=== PATIENT | female | born 1970 | race Caucasian/White ===

== ENCOUNTER 2016-06-13 15:44 | Emergency (ER) | payer MEDICAID ==
[~2016-06-13 15:44] MED LIST: CEPH250 PO; CIPR500T4 PO; LORTA5 PO; ONDA1TAB16 PO; OXYB5TAB33 PO; PERC5TAB12 PO; TAMS0.4C67 PO; TIZA4 PO; TYLE3 PO; ZOFR4TAB3 PO
[2016-06-13 15:47] VITALS: BP 179/91; PULSE 108; RESP 16; TEMP 98.2; O2SAT 98
[2016-06-13] MEDS ORDERED: SODIUM CHLOR 0.9% 1000 ML INJ 1,000 ML IV ONE (16:04)
[2016-06-13] MEDS ORDERED: MORPHINE SULFATE 4 MG/ML INJ IV ONE (16:15)
[2016-06-13] MEDS ORDERED: ONDANSETRON HCL 4 MG/2 ML VIAL IVP ONE (16:15)
--- NOTE | 2016-06-13 16:31 | PD ---
HPI Chief Complaint: Flank/Kidney Pain Time Seen by Provider: 16:28 Travel History International Travel<30 days: No Contact w/Intl Traveler<30days: No History of Present Illness HPI 45-year-old female that presents to the ED for evaluation of left abdominal and flank pain. Patient has a chronic history of kidney stones in the past and has had same pain in the past. Patient states that she's had this for a week and initially she didn't think much of it as she will just finished her periods that she was thinking that maybe is related to that. She also has been moving to any location and she was doing heavy lifting and could be the cause of it. She really more worried when she started noticing that she had more urgency and polyuria. She also got worried when the pain did not go away and seems to becoming ongoing and progressively not improving. Per patient she's had had to have stents in the past and she is concerned that she might need a new one. She denies any fevers chills or sweats. Per patient she does feel somewhat nauseous but not vomiting. No bowel movement issues. No vaginal discharge. Per patient she has no vaginal bleeding any more. She denies . Per patient her pain is 7 out of 10 minutes and the left side. Does not radiate. PFSH Past Medical History Cancer: No Cardiovascular Problems: No Diabetes: No Diminished Hearing: No Endocrine: No Genitourinary: Yes (HX KIDNEY STONES, CALCIFIED KIDNEY, AND UTI) Headaches: Yes Hepatitis: No Hiatal Hernia: No Immune Disorder: No Kidney Stones: Yes Musculoskeletal: Yes (SCOLIOSIS, chronic back pain) Neurologic: Yes Reproductive: No Respiratory: No Seizures: Yes Thyroid Disease: No ?: Not : 8 Para: 5 Miscarriage: 3 Ovarian Cysts: Yes Tubal Ligation: Yes Past Surgical History AICD: No Body Medical Devices: STENT IN L SIDE Ear Surgery: Yes (TUBES A CHILD) Genitourinary Surgery: Yes (LITHOTRIPSY, STENT IN PLACE FOR LEFT) Joint Replacement: No Pacemaker: No Tonsillectomy: Yes Other Surgery: Yes (URETER STENTS X3, LITHOTRIPSY ) Social History Alcohol Use: No Tobacco Use: No Substance Use: No Allergies-Medications (Allergen,Severity, Reaction): Coded Allergies: Seafood (Verified Allergy, Severe, SWELLING, 06/13/16) Reported Meds & Prescriptions Reported Meds & Active Scripts Active Diclofenac Sodium DR (Diclofenac Sodium) 75 Mg Tabdr 75 Mg PO BID PRN Lortab (Hydrocodone-Acetaminophen) 5-325 Mg Tab 1 Tab PO Q6H PRN Zofran (Ondansetron HCl) 4 Mg Tab 4 Mg PO Q6HR PRN Review of Systems Except as stated in HPI: all other systems reviewed are Neg Physical Exam Narrative GENERAL: SKIN: Warm and dry. HEAD: Atraumatic. Normocephalic. EYES: Pupils equal and round. No scleral icterus. No injection or drainage. ENT: No nasal bleeding or discharge. Mucous membranes pink and moist. Tongue is midline. No uvula deviation. NECK: Trachea midline. No JVD. CARDIOVASCULAR: Regular rate and rhythm. No murmurs, S3, S4. RESPIRATORY: No accessory muscle use. Clear to auscultation. Breath sounds equal bilaterally. GASTROINTESTINAL: Abdomen soft, patient has scars to palpation of the left lower quadrant, nondistended. Hepatic and splenic margins not palpable. MUSCULOSKELETAL: Extremities without clubbing, cyanosis, or edema. No obvious deformities. Full range of motion of the upper and lower extremities bilaterally. 2+ pulses bilaterally. Patient has no CVA tenderness. NEUROLOGICAL: Awake and alert. No obvious cranial nerve deficits. Motor grossly within normal limits. Five out of 5 muscle strength in the arms and legs. Normal speech. PSYCHIATRIC: Appropriate mood and affect; insight and judgment normal. Data Data Last Documented VS Vital Signs Date Time Temp Pulse Resp B/P Pulse Ox O2 Delivery O2 Flow Rate FiO2 06/13/16 15:47 98.2 108 16 179/91 98 Room Air Orders Complete Blood Count With Diff (06/13/16 16:00) Comprehensive Metabolic Panel (06/13/16 16:00) Lipase (06/13/16 16:00) Urinalysis - C+S If Indicated (06/13/16 16:00) Iv Access Insert/Monitor (06/13/16 16:00) Ed Urine Pregnancytest Poc (06/13/16 16:04) Morphine Inj (Morphine Inj) (06/13/16 16:15) Ondansetron Inj (Zofran Inj) (06/13/16 16:15) Sodium Chlor 0.9% 1000 Ml Inj (Ns 1000 M (06/13/16 16:04) Ct Abd/Pel W/O Iv Contrast (1/13/17 ) Labs Laboratory Tests Test 06/13/16 16:30 White Blood Count 10.5 TH/MM3 Red Blood Count 3.85 MIL/MM3 Hemoglobin 11.9 GM/DL Hematocrit 35.1 % Mean Corpuscular Volume 91.2 FL Mean Corpuscular Hemoglobin 30.9 PG Mean Corpuscular Hemoglobin 33.8 % Concent Red Cell Distribution Width 13.4 % Platelet Count 371 TH/MM3 Mean Platelet Volume 8.6 FL Neutrophils (%) (Auto) 71.6 % Lymphocytes (%) (Auto) 20.6 % Monocytes (%) (Auto) 5.8 % Eosinophils (%) (Auto) 1.2 % Basophils (%) (Auto) 0.8 % Neutrophils # (Auto) 7.5 TH/MM3 Lymphocytes # (Auto) 2.2 TH/MM3 Monocytes # (Auto) 0.6 TH/MM3 Eosinophils # (Auto) 0.1 TH/MM3 Basophils # (Auto) 0.1 TH/MM3 CBC Comment DIFF FINAL Differential Comment Urine Color YELLOW Urine Turbidity HAZY Urine pH 6.0 Urine Specific [place] 1.021 Urine Protein NEG mg/dL Urine Glucose (UA) NEG mg/dL Urine Ketones NEG mg/dL Urine Occult Blood NEG Urine Nitrite NEG Urine Bilirubin NEG Urine Urobilinogen LESS THAN 2.0 MG/DL Urine Leukocyte Esterase NEG Urine WBC 2 /hpf Urine Squamous Epithelial 8 /hpf Cells Urine Mucus FEW /lpf Microscopic Urinalysis Comment CULT NOT INDICATED Sodium Level 139 MEQ/L Potassium Level 4.0 MEQ/L Chloride Level 104 MEQ/L Carbon Dioxide Level 24.1 MEQ/L Anion Gap 11 MEQ/L Blood Urea Nitrogen 19 MG/DL Creatinine 0.72 MG/DL Estimat Glomerular Filtration 88 ML/MIN Rate Random Glucose 101 MG/DL Calcium Level 8.6 MG/DL Total Bilirubin 0.3 MG/DL Aspartate Amino Transf 9 U/L (AST/SGOT) Alanine Aminotransferase 19 U/L (ALT/SGPT) Alkaline Phosphatase 86 U/L Total Protein 6.9 GM/DL Albumin 3.7 GM/DL Lipase 122 U/L MDM Medical Decision Making Medical Screen Exam Complete: Yes Emergency Medical Condition: Yes Medical Record Reviewed: Yes Interpretation(s) Last Impressions Abdomen/Pelvis CT 06/13/16 0000 Signed Impressions: Service Date/Time: Monday, June 13, 2016 16:52 - CONCLUSION: 1. No acute intra-abdominal process. 2. Cholelithiasis. 3. Multiple tiny calcified nonobstructing left renal calculi. 4. Uncomplicated colonic diverticulosis. 5. Scoliosis and degenerative changes of the lumbar spine. 6. Slight prominence of the right ovary which is nonspecific. Rogre Espino MD CBC & BMP Diagram 06/13/16 16:30 LFTS and lipase WNL UA negative Differential Diagnosis Kidney stone versus pylonephritis versus cystitis versus urethritis versus pelvic pain Narrative Course 45-year-old female that presents to the ED for evaluation of left flank and abdominal pain. Patient was properly examined and was found to have signs and symptoms which appear to be consistent with likely kidney stone. Labs and imaging ordered. Patient was given IV pain medication as well as fluids. Labs and imaging showed multiple kidney stones on the left side but nothing causing obstruction. Stones are too small. No sign of infection. Patient was reassured. At this time I believe the patient may be passing some other smaller stones in causing the pain. I will treat patient for her pain with diclofenac sodium, Lortab and she was given Zofran for nausea to use as needed. She was instructed to drink plenty of fluids. Follow with her doctor. See ED worsening symptoms. Diagnosis Primary Impression: Flank pain Patient Instructions: General Instructions, Narcotic given in the ED Additional Instructions: Take medications as prescribed. Follow-up with PCP. See ED for any worsening symptoms. Do not drink or drive while taking pain medication. Apply ice or heat as needed for pain. Drink plenty of fluids. Med/Other Pt SpecificInfo: Prescription(s) given Scripts Diclofenac Sodium DR 75 Mg Tabdr75 Mg PO BID PRN (PAIN SCALE 1 TO 10) #20 TAB Prov:Vincent Cedeno MD 06/13/16 Hydrocodone-Acetaminophen (Lortab)5-325 Mg Tab1 Tab PO Q6H PRN (PAIN) #14 TAB Prov:Vincent Cedeno MD 06/13/16 Ondansetron (Zofran)4 Mg Tab4 Mg PO Q6HR PRN (NAUSEA OR VOMITING) #20 TAB Prov:Vincent Cedeno MD 06/13/16 Disposition: 01 DISCHARGE HOME Condition: Stable Алкесандр العراقي Jun 13, 2016 16:31
[2016-06-13 16:47] LABS: BLOOD, URINE NEG (NEG); COMMENT (UR) CULT NOT INDICATED; CULTURE IF INDICATED CULT NOT INDICATED; GLUCOSE,URINE NEG (NEG); KETONE, URINE NEG (NEG); MUCUS URINE FEW /lpf (OCC); NITRITE,URINE NEG (NEG); SQUAMOUS EPITHELIAL CELL URINE 8 /hpf (0-5); URINE COLOR YELLOW (YELLW/STRAW)
[2016-06-13 16:58] LABS: ALT (GPT) 19 U/L (10-53); ANION GAP 11 MEQ/L (5-15); AST (GOT) 9 U/L (15-37); BICARBONATE 24.1 MEQ/L (21.0-32.0); BLOOD UREA NITROGEN 19 MG/DL (7-18); CHLORIDE 104 MEQ/L (98-107); GLOMERULAR FILTRATION RATE 88 ML/MIN (>89); SODIUM (NA) 139 MEQ/L (136-145)
[2016-06-13 17:00] LABS: ALKALINE PHOSPHATASE 86 U/L (45-117); TOTAL BILIRUBIN ADULT 0.3 MG/DL (0.2-1.0)
--- NOTE | 2016-06-13 17:17 | RADRPT ---
EXAM DATE/TIME: 06/13/2016 16:52 [facility] COMPARISON: CT ABDOMEN & PELVIS W/O CONTRAST, September 10, 2015, 17:34. INDICATIONS : Left flank and groin pain. ORAL CONTRAST: No oral contrast ingested. RADIATION DOSE: 14.79 CTDIvol (mGy) MEDICAL HISTORY : Renal calculi. SURGICAL HISTORY : Tubal ligation. Ureteral stents. ENCOUNTER: Initial ACUITY: 1 day PAIN SCALE: 5/10 LOCATION: Left flank TECHNIQUE: Volumetric scanning of the abdomen and pelvis was performed. Using automated exposure control and adjustment of the mA and/or kV according to patient size, radiation dose was kept as low as reasonably achievable to obtain optimal diagnostic quality images. FINDINGS: LOWER LUNGS: The visualized lower lungs are clear. LIVER: Homogeneous density without lesion. There is no dilation of the biliary tree. The gallbla dder is filled with calcified gallstones. SPLEEN: Normal size without lesion. PANCREAS: Within normal limits. KIDNEYS: Normal in size and shape. Tiny calcified 2 mm nonobstructing left renal calculi are note d. There is no mass or hydronephrosis. ADRENAL GLANDS: Within normal limits. VASCULAR: There is no aortic aneurysm. BOWEL/MESENTERY: Uncomplicated colonic diverticulosis is noted. The appendix is normal. ABDOMINAL WALL: Within normal limits. RETROPERITONEUM: There is no lymphadenopathy. BLADDER: No wall thickening or mass. REPRODUCTIVE: The right ovary is more prominent than the left and measures 2.9 x 3.7 cm. INGUINAL: There is no lymphadenopathy or hernia. MUSCULOSKELETAL: Scoliosis and degenerative changes of the lumbar spine are noted. CONCLUSION: 1. No acute intra-abdominal process. 2. Cholelithiasis. 3. Multiple tiny calcified nonobstructing left renal calculi. 4. Uncomplicated colonic diverticulosis. 5. Scoliosis and degenerative changes of the lumbar spine. 6. Slight prominence of the right ovary which is nonspecific. Roger Espino MD on June 13, 2016 at 17:06 Board Certified Radiologist. This report was verified electronically.
[2016-06-13 17:18] LABS: AUTOMATED NEUTROPHIL # 7.5 TH/MM3 (1.8-7.7); BASOPHIL # 0.1 TH/MM3 (0-0.2); BASOPHIL % 0.8 % (0.0-2.0); EOSINOPHIL # 0.1 TH/MM3 (0-0.4); EOSINOPHIL % 1.2 % (0.0-4.0); HEMATOCRIT 35.1 % (35.0-46.0); HEMO FLAGS DIFF FINAL; LYMPH % 20.6 % (9.0-44.0); LYMPHOCYTE # 2.2 TH/MM3 (1.0-4.8); MEAN CELL VOLUME 91.2 FL (80.0-100.0); MEAN CORPUSCULAR HEMOGLOBIN 30.9 PG (27.0-34.0); MEAN CORPUSCULAR HGB CONC 33.8 % (32.0-36.0); MONO % 5.8 % (0.0-8.0); NEUT % 71.6 % (16.0-70.0); PLATELET COUNT 371 TH/MM3 (150-450); RED BLOOD COUNT 3.85 MIL/MM3 (4.00-5.30); RED CELL DISTRIBUTION WIDTH 13.4 % (11.6-17.2); WHITE BLOOD COUNT 10.5 TH/MM3 (4.0-11.0)
[2016-06-13] MEDS ORDERED: HYDR-3533 PO (17:26)
[2016-06-13] MEDS ORDERED: DICL75TA PO (17:26)
[2016-06-13] MEDS ORDERED: ZOFR4TAB PO (17:26)
== END 2016-06-13 18:30 | disposition home or self-care (01) ==
LOC: NEPC 15:44
DX: R10.9 Unspecified abdominal pain (principal)
CPT/HCPCS: 74176; 80053; 81001; 83690; 84703; 85025; 96361; 96374; 96375; 99284; J2270; J2405; J7030

== ENCOUNTER 2017-01-22 09:22 | Emergency (ER) | payer MEDICAID ==
[~2017-01-22] VITALS: Ht 160 cm; Wt 68.0 kg
[~2017-01-22 09:22] MED LIST changes: -CEPH250 PO; -CIPR500T4 PO; +DICL75TA PO; +HYDR-3533 PO; -LORTA5 PO; -ONDA1TAB16 PO; -OXYB5TAB33 PO; -PERC5TAB12 PO; -TAMS0.4C67 PO; -TIZA4 PO; -TYLE3 PO; +ZOFR4TAB PO; -ZOFR4TAB3 PO
[2017-01-22 09:24] VITALS: BP 167/98; PULSE 122; RESP 17; TEMP 98.2; O2SAT 98
[2017-01-22 09:41] VITALS: BP 135/90; PULSE 106; RESP 24; TEMP 98.3; O2SAT 99
[2017-01-22] MEDS ORDERED: KETOROLAC TROMETHAMINE 30 MG/ML (IVP) VIAL IVP ONE (10:00)
[2017-01-22] MEDS ORDERED: ONDANSETRON HCL 4 MG/2 ML VIAL IVP ONE (10:00)
[2017-01-22] MEDS ORDERED: SODIUM CHLORIDE 0.9% FLUSH 10 ML FLUSH IV FLUSH PRN (10:00)
[2017-01-22] MEDS ORDERED: SODIUM CHLOR 0.9% 1000 ML INJ 1,000 ML IV ONE (10:15)
[2017-01-22 10:16] VITALS: RESP 18; O2SAT 98
[2017-01-22 10:48] LABS: BACTERIA, URINE RARE /hpf; BLOOD, URINE MOD (NEG); GLUCOSE,URINE NEG (NEG); KETONE, URINE NEG (NEG); NITRITE,URINE NEG (NEG); SQUAMOUS EPITHELIAL CELL URINE 1 /hpf (0-5); URINE COLOR YELLOW (YELLW/STRAW)
[2017-01-22 10:51] LABS: AUTOMATED NEUTROPHIL # 6.8 TH/MM3 (1.8-7.7); BASOPHIL # 0.1 TH/MM3 (0-0.2); BASOPHIL % 0.7 % (0.0-2.0); EOSINOPHIL # 0.1 TH/MM3 (0-0.4); EOSINOPHIL % 1.2 % (0.0-4.0); HEMATOCRIT 36.7 % (35.0-46.0); HEMO FLAGS DIFF FINAL; LYMPH % 25.4 % (9.0-44.0); LYMPHOCYTE # 2.5 TH/MM3 (1.0-4.8); MEAN CELL VOLUME 93.5 FL (80.0-100.0); MEAN CORPUSCULAR HEMOGLOBIN 31.6 PG (27.0-34.0); MEAN CORPUSCULAR HGB CONC 33.8 % (32.0-36.0); MONO % 4.5 % (0.0-8.0); NEUT % 68.2 % (16.0-70.0); PLATELET COUNT 341 TH/MM3 (150-450); RED BLOOD COUNT 3.92 MIL/MM3 (4.00-5.30); RED CELL DISTRIBUTION WIDTH 13.9 % (11.6-17.2)
[2017-01-22 11:00] LABS: BICARBONATE 24.7 MEQ/L (21.0-32.0)
[2017-01-22] MEDS ORDERED: HYDROmorphone HCL PF 1 MG/ML VIAL IV PUSH ONE (11:00)
--- NOTE | 2017-01-22 11:00 | EKG ---
Date Performed: 01/22/2017 Time Performed: 09:59:14 PTAGE: 46 years EKG: Sinus rhythm POSSIBLE LEFT ATRIAL ENLARGEMENT LOW QRS VOLTAGE IN PRECORDIAL LEADS NONSPECIFIC T-WAVE ABNORMALITY BORDERLINE ECG PREVIOUS TRACING : 01/06/2013 14.55 No significant change from previous tracing noted. DOCTOR: Hai Leon Interpretating Date/Time 01/22/2017 10:59:48
[2017-01-22 11:06] LABS: COMMENT (UR) CULT NOT INDICATED; CULTURE IF INDICATED CULT NOT INDICATED
[2017-01-22] MEDS ORDERED: ZOFR4TAB PO (11:40)
[2017-01-22] MEDS ORDERED: TAMS5CAP PO (11:40)
[2017-01-22] MEDS ORDERED: HYDR-3533 PO (11:40)
--- NOTE | 2017-01-22 11:41 | PD ---
HPI Chief Complaint: Flank/Kidney Pain Time Seen by Provider: 09:58 Travel History International Travel<30 days: No Contact w/Intl Traveler<30days: No Traveled to known affect area: No History of Present Illness HPI Patient is 46 years old. She complains of pain in the left flank. She has had intermittent left flank pain for years. She has nephrocalcinosis and frequent stones. No fever. Pain radiates from the left lower quadrant to the flank of the left side and back. Severity moderate. it can be severe at times. Over- the-counter analgesia at home have been marginally helpful PFSH Past Medical History Cancer: No Cardiovascular Problems: No Diabetes: No Diminished Hearing: No Endocrine: No Genitourinary: Yes (HX KIDNEY STONES, CALCIFIED KIDNEY, AND UTI) Headaches: Yes Hepatitis: No Hiatal Hernia: No Immune Disorder: No Kidney Stones: Yes Musculoskeletal: Yes (SCOLIOSIS, chronic back pain) Neurologic: Yes Reproductive: No Respiratory: No Seizures: Yes Thyroid Disease: No ?: Not LMP: 01/06/2017 : 8 Para: 5 Miscarriage: 3 Ovarian Cysts: Yes Tubal Ligation: Yes Past Surgical History AICD: No Body Medical Devices: STENT IN L SIDE Ear Surgery: Yes (TUBES A CHILD) Genitourinary Surgery: Yes (LITHOTRIPSY, STENT IN PLACE FOR LEFT) Joint Replacement: No Pacemaker: No Tonsillectomy: Yes Other Surgery: Yes (URETER STENTS X3, LITHOTRIPSY ) Social History Alcohol Use: No Tobacco Use: No Substance Use: No Allergies-Medications (Allergen,Severity, Reaction): Coded Allergies: Fish Containing Products (Unverified Allergy, Severe, SWELLING, 01/22/17) Reported Meds & Prescriptions Reported Meds & Active Scripts Active Flomax (Tamsulosin HCl) 0.4 Mg Cap 0.4 Mg PO HS Zofran (Ondansetron HCl) 4 Mg Tab 4 Mg PO Q6HR PRN Lortab (Hydrocodone-Acetaminophen) 5-325 Mg Tab 1 Tab PO Q6H PRN Review of Systems Except as stated in HPI: all other systems reviewed are Neg Physical Exam Narrative GENERAL: 46-year-old female well-nourished well-developed mild to moderate distress secondary to pain SKIN: Focused skin assessment warm/dry. HEAD: Atraumatic. Normocephalic. EYES: Pupils equal and round. No scleral icterus. No injection or drainage. ENT: No nasal bleeding or discharge. Mucous membranes pink and moist. NECK: Trachea midline. No JVD. CARDIOVASCULAR: Regular rate and rhythm. No murmur appreciated. RESPIRATORY: No accessory muscle use. Clear to auscultation. Breath sounds equal bilaterally. GASTROINTESTINAL: Abdomen soft, non-tender, nondistended. Hepatic and splenic margins not palpable. Minimal tenderness to percussion left flank. MUSCULOSKELETAL: No obvious deformities. No clubbing. No cyanosis. No edema. NEUROLOGICAL: Awake and alert. No obvious cranial nerve deficits. Motor grossly within normal limits. Normal speech. PSYCHIATRIC: Appropriate mood and affect; insight and judgment normal. Data Data Last Documented VS Vital Signs Date Time Temp Pulse Resp B/P (MAP) Pulse Ox O2 Delivery O2 Flow Rate FiO2 01/22/17 10:16 18 98 Room Air 01/22/17 09:41 98.3 106 Blood pressure 135/90 Orders Orders Basic Metabolic Panel (Bmp) (01/22/17 09:58) Complete Blood Count With Diff (01/22/17 09:58) Urinalysis - C+S If Indicated (01/22/17 09:58) Iv Access Insert/Monitor (01/22/17 09:58) Ecg Monitoring (01/22/17 09:58) Oximetry (01/22/17 09:58) Ondansetron Inj (Zofran Inj) (01/22/17 10:00) Sodium Chloride 0.9% Flush (Ns Flush) (01/22/17 10:00) Ketorolac Inj (Toradol Inj) (01/22/17 10:00) Ed Urine Pregnancytest Poc (01/22/17 09:58) Electrocardiogram (01/22/17 ) Sodium Chlor 0.9% 1000 Ml Inj (Ns 1000 M (01/22/17 10:15) Hydromorphone Pf Inj (Dilaudid Pf Inj) (01/22/17 11:00) Labs Laboratory Tests Test 01/22/17 10:05 White Blood Count 10.0 TH/MM3 Red Blood Count 3.92 MIL/MM3 Hemoglobin 12.4 GM/DL Hematocrit 36.7 % Mean Corpuscular Volume 93.5 FL Mean Corpuscular Hemoglobin 31.6 PG Mean Corpuscular Hemoglobin Concent 33.8 % Red Cell Distribution Width 13.9 % Platelet Count 341 TH/MM3 Mean Platelet Volume 8.8 FL Neutrophils (%) (Auto) 68.2 % Lymphocytes (%) (Auto) 25.4 % Monocytes (%) (Auto) 4.5 % Eosinophils (%) (Auto) 1.2 % Basophils (%) (Auto) 0.7 % Neutrophils # (Auto) 6.8 TH/MM3 Lymphocytes # (Auto) 2.5 TH/MM3 Monocytes # (Auto) 0.5 TH/MM3 Eosinophils # (Auto) 0.1 TH/MM3 Basophils # (Auto) 0.1 TH/MM3 CBC Comment DIFF FINAL Differential Comment Urine Color YELLOW Urine Turbidity CLEAR Urine pH 6.0 Urine Specific [place] 1.014 Urine Protein NEG mg/dL Urine Glucose (UA) NEG mg/dL Urine Ketones NEG mg/dL Urine Occult Blood MOD Urine Nitrite NEG Urine Bilirubin NEG Urine Urobilinogen LESS THAN 2.0 MG/DL Urine Leukocyte Esterase NEG Urine RBC /hpf Urine WBC 2 /hpf Urine Squamous Epithelial Cells 1 /hpf Urine Bacteria RARE /hpf Microscopic Urinalysis Comment CULT NOT INDICATED Blood Urea Nitrogen 10 MG/DL Creatinine 0.85 MG/DL Random Glucose 123 MG/DL Calcium Level 8.3 MG/DL Sodium Level 137 MEQ/L Potassium Level 4.0 MEQ/L Chloride Level 105 MEQ/L Carbon Dioxide Level 24.7 MEQ/L Anion Gap 7 MEQ/L Estimat Glomerular Filtration Rate 72 ML/MIN [facility] Medical Decision Making Medical Screen Exam Complete: Yes Emergency Medical Condition: Yes Medical Record Reviewed: Yes Differential Diagnosis Constipation, Gastritis, Acute Cholecystitis, Biliary Colic, Pancreatitis, ADAMS , Hepatitis, Bowel Obstruction, Cystitis, Mesenteric Ischemia, AAA, Appendicitis , Renal Stone/Hydronephrosis, GERD, perforated viscous Narrative Course CBC & BMP Diagram 01/22/17 10:05 Calcium Level 8.3 L Urinalysis reveals hematuria The patient has history of kidney stones with today's presentation feeling similar to priors. She has had at least 10 CT scans of the abdomen and pelvis here and we will avoid excessive ionizing radiation today. Return precautions discussed. No evidence of septic stone based on history exam and results of workup. Diagnosis Primary Impression: Flank pain Referrals: Surendra Bardales MD 2 days Additional Instructions: You have a choice when it comes to health care, and we are glad that you chose [facility]. Hopefully, we have met your expectations on today's visit. You are welcome to return to [facility] at any time, as we are committed to meeting the health care needs of our community. Med/Other Pt SpecificInfo: Prescription(s) given Scripts Tamsulosin (Flomax) 0.4 Mg Cap 0.4 MG PO HS for Manage Prostate Problems, #10 CAP 0 Refills Prov: Gwyn Raymond MD 01/22/17 Ondansetron (Zofran) 4 Mg Tab 4 MG PO Q6HR Y for NAUSEA OR VOMITING, #20 TAB Prov: Gwyn Raymond MD 01/22/17 Hydrocodone-Acetaminophen (Lortab) 5-325 Mg Tab 1 TAB PO Q6H Y for PAIN, #14 TAB Prov: Gwyn Raymond MD 01/22/17 Disposition: 01 DISCHARGE HOME Condition: Stable Gwyn Raymond MD Jan 22, 2017 11:41
== END 2017-01-22 12:15 | disposition home or self-care (01) ==
LOC: NEPD 09:22
DX: R10.32 Left lower quadrant pain (principal); Z87.440 Personal history of urinary (tract) infections; Z87.442 Personal history of urinary calculi; M41.9 Scoliosis, unspecified
CPT/HCPCS: 80048; 81001; 84703; 85025; 93005; 96374; 96375; 99284; J1170; J1885; J2405; J7030

== ENCOUNTER 2017-01-28 17:21 | Emergency (ER) | payer MEDICAID ==
[~2017-01-28] VITALS: Ht 160 cm; Wt 70.0 kg
[~2017-01-28 17:21] MED LIST changes: -DICL75TA PO; +TAMS5CAP PO
[2017-01-28 17:23] VITALS: BP 137/85; PULSE 111; RESP 12; TEMP 98.6; O2SAT 100
[2017-01-28] MEDS ORDERED: SODIUM CHLOR 0.9% 1000 ML INJ 1,000 ML IV SCH (21:20)
--- NOTE | 2017-01-28 21:23 | PD ---
HPI Chief Complaint: Flank/Kidney Pain Time Seen by Provider: 21:16 Travel History International Travel<30 days: No Contact w/Intl Traveler<30days: No Traveled to known affect area: No History of Present Illness HPI 46-year-old female with history of kidney stones here for evaluation of left flank pain. The patient presented to the emergency department on 01/22/17 with similar pain. It was felt that she had a kidney stone at that time. CT abdomen pelvis was not performed at that time because of history of multiple CT scans. Patient was discharged home with pain medication and Flomax. She reports that the pain has been persistent, described as cramping with intermittent sharp pains radiating from her left flank to her left lower abdomen. History of bilateral tubal ligations. She is also required ureteral stents and lithotripsy in the past. No fevers or chills. She does feel nauseous. She has noted some intermittent gross hematuria and has had increased urinary frequency and urgency. PFSH Past Medical History Cancer: No Cardiovascular Problems: No Diabetes: No Diminished Hearing: No Endocrine: No Genitourinary: Yes (HX KIDNEY STONES, CALCIFIED KIDNEY, AND UTI) Headaches: Yes Hepatitis: No Hiatal Hernia: No Immune Disorder: No Kidney Stones: Yes Musculoskeletal: Yes (SCOLIOSIS, chronic back pain) Neurologic: Yes Reproductive: No Respiratory: No Seizures: Yes Thyroid Disease: No ?: Not LMP: 01/08/17 : 8 Para: 5 Miscarriage: 3 Ovarian Cysts: Yes Tubal Ligation: Yes Past Surgical History AICD: No Body Medical Devices: STENT IN L SIDE Ear Surgery: Yes (TUBES A CHILD) Genitourinary Surgery: Yes (LITHOTRIPSY, STENT IN PLACE FOR LEFT) Joint Replacement: No Pacemaker: No Tonsillectomy: Yes Other Surgery: Yes (URETER STENTS X3, LITHOTRIPSY ) Social History Alcohol Use: No Tobacco Use: No Substance Use: No Allergies-Medications (Allergen,Severity, Reaction): Coded Allergies: Fish Containing Products (Unverified Allergy, Severe, SWELLING, 01/22/17) Reported Meds & Prescriptions Reported Meds & Active Scripts Active Flomax (Tamsulosin HCl) 0.4 Mg Cap 0.4 Mg PO HS Zofran (Ondansetron HCl) 4 Mg Tab 4 Mg PO Q6HR PRN Review of Systems Except as stated in HPI: all other systems reviewed are Neg Physical Exam Narrative GENERAL: Well-developed, well-nourished, mild distress secondary to pain. SKIN: Focused skin assessment warm/dry. No rash. HEAD: Atraumatic. Normocephalic. EYES: Pupils equal and round. No scleral icterus. No injection or drainage. ENT: Mucous membranes pink and moist. NECK: Trachea midline. No JVD. CARDIOVASCULAR: Regular rate and rhythm. RESPIRATORY: No accessory muscle use. Clear to auscultation. Breath sounds equal bilaterally. GASTROINTESTINAL: Abdomen soft, non-tender, nondistended. Hepatic and splenic margins not palpable. MUSCULOSKELETAL: No obvious deformities. No clubbing. No cyanosis. No edema. Moderate left CVA tenderness. No right CVA tenderness. NEUROLOGICAL: Awake and alert. No obvious cranial nerve deficits. Motor grossly within normal limits. Normal speech. PSYCHIATRIC: Appropriate mood and affect; insight and judgment normal. Data Data Last Documented VS Vital Signs Date Time Temp Pulse Resp B/P (MAP) Pulse Ox O2 Delivery O2 Flow Rate FiO2 01/28/17 17:23 98.6 111 12 137/85 (102) 100 Orders Orders Complete Blood Count With Diff (01/28/17 18:32) Comprehensive Metabolic Panel (01/28/17 18:32) Lipase (01/28/17 18:32) Urinalysis - C+S If Indicated (01/28/17 18:32) Ct Abd/Pel W/O Iv Contrast (01/28/17 21:20) Morphine Inj (Morphine Inj) (01/28/17 21:30) Ondansetron Inj (Zofran Inj) (01/28/17 21:30) Sodium Chlor 0.9% 1000 Ml Inj (Ns 1000 M (01/28/17 21:20) Ed Urine Pregnancytest Poc (01/28/17 21:20) Methylprednisolone So Succ Inj (Solumedr (01/28/17 22:15) Diphenhydramine Inj (Benadryl Inj) (01/28/17 22:15) Famotidine Inj (Pepcid Inj) (01/28/17 22:15) Urine Culture (01/28/17 23:19) Labs Laboratory Tests Test 01/28/17 22:30 01/28/17 23:19 White Blood Count 11.5 TH/MM3 Red Blood Count 3.79 MIL/MM3 Hemoglobin 11.6 GM/DL Hematocrit 35.2 % Mean Corpuscular Volume 92.8 FL Mean Corpuscular Hemoglobin 30.5 PG Mean Corpuscular Hemoglobin Concent 32.9 % Red Cell Distribution Width 13.9 % Platelet Count 368 TH/MM3 Mean Platelet Volume 8.6 FL Neutrophils (%) (Auto) 61.4 % Lymphocytes (%) (Auto) 31.4 % Monocytes (%) (Auto) 5.7 % Eosinophils (%) (Auto) 0.8 % Basophils (%) (Auto) 0.7 % Neutrophils # (Auto) 7.0 TH/MM3 Lymphocytes # (Auto) 3.6 TH/MM3 Monocytes # (Auto) 0.7 TH/MM3 Eosinophils # (Auto) 0.1 TH/MM3 Basophils # (Auto) 0.1 TH/MM3 CBC Comment DIFF FINAL Differential Comment Blood Urea Nitrogen 13 MG/DL Creatinine 0.69 MG/DL Random Glucose 79 MG/DL Total Protein 7.4 GM/DL Albumin 3.6 GM/DL Calcium Level 8.7 MG/DL Alkaline Phosphatase 85 U/L Aspartate Amino Transf (AST/SGOT) 10 U/L Alanine Aminotransferase (ALT/SGPT) 14 U/L Total Bilirubin 0.3 MG/DL Sodium Level 138 MEQ/L Potassium Level 3.9 MEQ/L Chloride Level 106 MEQ/L Carbon Dioxide Level 23.0 MEQ/L Anion Gap 9 MEQ/L Estimat Glomerular Filtration Rate 92 ML/MIN Lipase 183 U/L Urine Color YELLOW Urine Turbidity CLEAR Urine pH 6.0 Urine Specific [place] 1.017 Urine Protein NEG mg/dL Urine Glucose (UA) NEG mg/dL Urine Ketones NEG mg/dL Urine Occult Blood MOD Urine Nitrite NEG Urine Bilirubin NEG Urine Urobilinogen LESS THAN 2.0 MG/DL Urine Leukocyte Esterase NEG Urine RBC /hpf Urine WBC 39 /hpf Urine Squamous Epithelial Cells <1 /hpf Microscopic Urinalysis Comment CULTURE INDICATED MDM Medical Decision Making Medical Screen Exam Complete: Yes Emergency Medical Condition: Yes Medical Record Reviewed: Yes Differential Diagnosis Nephrolithiasis, ureterolithiasis, pyelonephritis, UTI, cystitis, diverticulitis , colitis, Narrative Course After receiving morphine and Zofran in her left antecubital fossa, the patient had what appeared to be a localized allergic reaction with swelling to the arm and hive-like lesions. This was witnessed by my PA who ordered Benadryl and Pepcid. Upon my assessment the patient has slight hand swelling, however the hives have resolved. No respiratory difficulties. Initial vital signs show heart rate of 111 which improved to 87 without any intervention, blood pressure 137/85, pulse ox 100% on room air, oral temp of 98.6F. CBC shows WBC 11.5, hemoglobin 11.6, hematocrit 35.2, platelets 368. CMP is unremarkable. Lipase is 183. UA shows moderate occult blood, innumerable rbc's, [address] abdomen pelvis: CONCLUSION: 1. Tiny 1 mm nonobstructing bilateral renal calculi. No hydronephrosis or obstructive uropathy. 2. Numerous calcified gallstones. No biliary ductal dilatation. Patient made aware of all findings. She is having a recurrence of her left flank pain after the morphine she received wore off. She has history of kidney stones and has hematuria. She likely passed a stone recently. There are no signs of hydronephrosis on exam. She does have intrarenal stones. She does have 39 wbc's which are likely from inflammatory response, however she will be treated for UTI. She is stable for discharge home with outpatient follow-up with her primary care physician this week. She was informed on when to return to the emergency department. She verbalizes understanding and agreement with plan. Diagnosis Primary Impression: Flank pain Additional Impressions: UTI (urinary tract infection) Qualified Codes: N39.0 - Urinary tract infection, site not specified; R31.9 - Hematuria, unspecified Hematuria Qualified Codes: R31.29 - Other microscopic hematuria Gallstones Referrals: Mark Lo MD 3 days Urologist Primary Care Physician 3 days Additional Instructions: Follow-up with your primary care physician this week. Follow-up with urologist Dr. Lo or a urologist of your choice this week. Return to the emergency department for worsening symptoms or any other concerns. Scripts Nitrofurantoin Monohydrate Macrocrystals (Macrobid) 100 Mg Cap 100 MG PO BID for Infection for 5 Days, CAP 0 Refills Prov: Vincent Cedeno MD 01/29/17 Oxycodone-Acetaminophen (Percocet) 5-325 mg Tab 1 TAB PO Q6H Y for PAIN, #15 TAB 0 Refills Prov: Vincent Cedeno MD 01/29/17 Disposition: 01 DISCHARGE HOME Condition: Stable Vincent Cedeno MD Jan 28, 2017 21:23
[2017-01-28] MEDS ORDERED: MORPHINE SULFATE 4 MG/ML INJ IV PUSH ONE (21:30)
[2017-01-28] MEDS ORDERED: ONDANSETRON HCL 4 MG/2 ML VIAL IVP ONE (21:30)
[2017-01-28] MEDS ORDERED: diphenhydrAMINE HCL 50 MG/ML VIAL IV PUSH ONE (22:15)
[2017-01-28] MEDS ORDERED: FAMOTIDINE 20 MG/2 ML VIAL IV PUSH ONE (22:15)
[2017-01-28] MEDS ORDERED: methylPREDNISolone SOD SUCC 125 MG/2 ML VIAL IV PUSH ONE (22:15)
[2017-01-28 23:05] LABS: BASOPHIL # 0.1 TH/MM3 (0-0.2); BASOPHIL % 0.7 % (0.0-2.0); EOSINOPHIL # 0.1 TH/MM3 (0-0.4); EOSINOPHIL % 0.8 % (0.0-4.0); HEMATOCRIT 35.2 % (35.0-46.0); HEMO FLAGS DIFF FINAL; LYMPH % 31.4 % (9.0-44.0); LYMPHOCYTE # 3.6 TH/MM3 (1.0-4.8); MEAN CELL VOLUME 92.8 FL (80.0-100.0); MEAN CORPUSCULAR HEMOGLOBIN 30.5 PG (27.0-34.0); MEAN CORPUSCULAR HGB CONC 32.9 % (32.0-36.0); MONO % 5.7 % (0.0-8.0); NEUT % 61.4 % (16.0-70.0); PLATELET COUNT 368 TH/MM3 (150-450); RED BLOOD COUNT 3.79 MIL/MM3 (4.00-5.30); RED CELL DISTRIBUTION WIDTH 13.9 % (11.6-17.2); WHITE BLOOD COUNT 11.5 TH/MM3 (4.0-11.0)
[2017-01-28 23:21] LABS: ALKALINE PHOSPHATASE 85 U/L (45-117); TOTAL BILIRUBIN ADULT 0.3 MG/DL (0.2-1.0)
[2017-01-28 23:22] LABS: ALT (GPT) 14 U/L (10-53); ANION GAP 9 MEQ/L (5-15); AST (GOT) 10 U/L (15-37); BLOOD UREA NITROGEN 13 MG/DL (7-18); CHLORIDE 106 MEQ/L (98-107); GLOMERULAR FILTRATION RATE 92 ML/MIN (>89); SODIUM (NA) 138 MEQ/L (136-145)
[2017-01-28 23:27] LABS: BLOOD, URINE MOD (NEG); COMMENT (UR) CULTURE INDICATED; CULTURE IF INDICATED CULTURE INDICATED; GLUCOSE,URINE NEG (NEG); KETONE, URINE NEG (NEG); NITRITE,URINE NEG (NEG); SQUAMOUS EPITHELIAL CELL URINE <1 /hpf (0-5); URINE COLOR YELLOW (YELLW/STRAW)
[2017-01-28 23:28] LABS: POTASSIUM 3.9 MEQ/L (3.5-5.1)
--- NOTE | 2017-01-28 23:46 | RADRPT ---
EXAM DATE/TIME: 01/28/2017 23:31 [facility] COMPARISON: US PELVIS - COMPLETE (PATIENT SUPPORT SPECIALIST,NON-PREG), October 03, 2013, 13:08. INDICATIONS : Left flank pain. ORAL CONTRAST: No oral contrast ingested. RADIATION DOSE: 7.48 CTDIvol (mGy) MEDICAL HISTORY : Renal calculi. SURGICAL HISTORY : Tubal ligation. Lithotripsy. Ureteral stents removed. ENCOUNTER: Initial ACUITY: 1 day PAIN SCALE: 6/10 LOCATION: Left flank TECHNIQUE: Volumetric scanning of the abdomen and pelvis was performed. Using automated exposure control and ad justment of the mA and/or kV according to patient size, radiation dose was kept as low as reasonably achievable to obtain optimal diagnostic quality images. DICOM format image data is available electro nically for review and comparison. FINDINGS: Lung bases clear. No acute findings in the liver, spleen, adrenals or pancreas. There are tiny nonobs tructing calculi in both kidneys measuring about 1 mm in diameter. There is no hydronephrosis, ureter al calculi, bladder calculi or evidence for obstructive uropathy. There is a mild scoliosis. Numerous calcified gallstones are present dependent within the gallbladder. No biliary ductal dilatat ion. No free fluid. No bowel obstruction. No adenopathy. CONCLUSION: 1. Tiny 1 mm nonobstructing bilateral renal calculi. No hydronephrosis or obstructive uropathy. 2. Numerous calcified gallstones. No biliary ductal dilatation. Tom Hernandez MD on January 28, 2017 at 23:38 Board Certified Radiologist. This report was verified electronically.
[2017-01-29] MEDS ORDERED: KETOROLAC TROMETHAMINE 60 MG/2 ML (IM) VIAL IM ONE
[2017-01-29] MEDS ORDERED: oxyCODONE/ACETAMINOPHEN 5 MG/325 MG TAB PO ONE
[2017-01-29] MEDS ORDERED: NITROFURANTOIN MONOHYD MACROCR 100 MG CAP PO ONE
[2017-01-29] MEDS ORDERED: PERC5TAB12 PO (00:07)
[2017-01-29] MEDS ORDERED: MACR100C2 PO (00:07)
== END 2017-01-29 00:28 | disposition home or self-care (01) ==
LOC: NEPD 17:21
DX: N39.0 Urinary tract infection, site not specified (principal); R31.9 Hematuria, unspecified; K80.80 Other cholelithiasis without obstruction; M41.9 Scoliosis, unspecified; R56.9 Unspecified convulsions; Z79.899 Other long term (current) drug therapy
CPT/HCPCS: 74176; 80053; 81001; 83690; 84703; 85025; 87086; 96372; 96374; 96375; 99285; J1200; J1885; J2270; J2405; J2930